=== PATIENT | male | born 1940 | race Caucasian/White ===

== ENCOUNTER → 2024-06-06 08:08 | Outpatient (REF) | payer MEDICARE, SELFPAY | LOC: RCS 08:08 | PROVIDERS: ATTENDING PHYSICIAN Student in an Organized Health Care Education/Training Program; FAMILY PHYSICIAN Student in an Organized Health Care Education/Training Program | DX: I34.0 Nonrheumatic mitral (valve) insufficiency (principal); I10 Essential (primary) hypertension; I48.91 Unspecified atrial fibrillation | CPT/HCPCS: 93306 ==

== ENCOUNTER 2024-06-06 09:03 | Emergency (ER) | payer MEDICARE, SELFPAY ==
[2024-06-06 09:04] VITALS: BP 152/85
--- NOTE | 2024-06-06 09:48 | ED.SKININJ ---
HPI-Injury
General
Chief Complaint: Skin Problem
Source: patient
Exam Limitations: none
Time Seen by Provider: 06/06/24 09:28
History of Present Illness-Injury
Initial Injury comments:
83-year-old male on Xarelto presents complaining of swelling to the left lateral leg starting yesterday. It started all of a sudden. No known injury. He knew he was due for an echocardiogram today as an outpatient so he got his echocardiogram and
came here for evaluation He has not missed any doses of his Xarelto. He denies chest pain or shortness of breath. He was concern for potential propagation. No fevers or chills. He is not a diabetic.
Phy Exam
Physical Exam
Physical Exam:
General: Well-appearing male no respiratory distress
HEENT: Normocephalic atraumatic skin: Hematoma noted to left lateral distal anne. Diameter of hematoma is about
3 cm. This is slightly tender. No surrounding erythema. No drainage. No fluctuance.
Extremities: No cyanosis
Course
Vital Signs
Initial and Last Documented VS:
Initial Vital Signs
Temp Pulse Resp BP Pulse Ox
98.6 F 83 16 152/85 97
06/06/24 09:04 06/06/24 09:04 06/06/24 09:04 06/06/24 09:04 06/06/24 09:04
Last Documented Vital Signs
Temp Pulse Resp BP Pulse Ox
98.6 F 83 16 152/85 97
06/06/24 09:04 06/06/24 09:04 06/06/24 09:04 06/06/24 09:04 06/06/24 09:04
MDM/Problems Addressed
Differential Diagnosis Includes:
Patient exam most consistent with hematoma. Do not suspect infectious process such as abscess or cellulitis. Patient was concerned about a potential blood clot however exam most consistent with hematoma. He is on Xarelto unlikely he is forming
clots.
Reassured patient. Recommend warm compresses. Recommend follow-up with family doctor. No indication for any further intervention such as drainage or imaging at this time.
*Critical Care Note
Total Time (30-74mins, 75-104mins- exclusive of procedures): Not Applicable
ED Attending Note
-
Portions of this chart may have been created with voice recognition software.� Occasional wrong word or��sound alike� substitutions may have occurred due to the inherent limitations of voice recognition software.
Discharge Plan
Departure
Patient Disposition: Home (Routine Discharge)
Date of Disposition: 06/06/24
Time of Disposition: 09:51
Patient with high blood pressure during this ER visit?: No
Discharge Problem:
Hematoma
Instructions: Hematoma
Prescriptions:
No Action
cyanocobalamin (vitamin B-12) [Vitamin B-12] 500 MCG tablet
1,000 mcg PO MOWEFR
osqvhmrj-cgz-VL-lycopen-lutein [Centrum Silver] 1 EACH tablet
1 tab PO QPM
telmisartan-hydrochlorothiazid 1 EACH tablet
1 ea PO QPM
coenzyme V23-njrstoy E 1 CAP capsule
1 tab PO QPM
atorvastatin 40 MG tablet
40 mg PO QPM Qty: 90 3RF
Rx Instructions:
Please note increased dose
nitroglycerin 0.4 MG tablet, sublingual
0.4 mg sublingual [id number] PRN (Reason: chest pain) Qty: 25 2RF
diltiazem HCl [Cardizem CD] 360 MG capsule,extended release 24hr
360 mg PO QPM
clopidogrel 75 MG tablet
75 mg PO QPM
pantoprazole 40 MG tablet,delayed release (DR/EC)
40 mg PO QPM
rivaroxaban [Xarelto] 15 MG tablet
15 mg PO QPM Qty: 90 3RF
Rx Instructions:
resume Sat 12/4 evening
Activity Restrictions/Additional Instructions:
Use warm compresses several times a day. Please return here for increasing swelling redness fever or pain. Follow-up with your doctor in 2 to 3 days for recheck
Discharge Date and Time
Print Language: [place]
[2024-06-06 10:14] VITALS: BMI 24.4
== END 2024-06-06 10:41 | disposition home or self-care (01) ==
LOC: EMR 09:03
PROVIDERS: EMERGENCY PHYSICIAN Emergency Medicine; FAMILY PHYSICIAN Student in an Organized Health Care Education/Training Program
DX: S80.12XA Contusion of left lower leg, initial encounter (principal); X58.XXXA Exposure to other specified factors, initial encounter; Z79.01 Long term (current) use of anticoagulants
CPT/HCPCS: 99282